=== PATIENT | female | born 1930 | race Caucasian/White ===

== ENCOUNTER 2018-09-03 22:12 | Inpatient (IN) | payer MEDICARE, OTHER ==
[2018-09-03 22:57] LABS: ADD MAN DIFF? NO
[2018-09-03 23:00] LABS: BASOPHILS % 0.4 % (0.0-2.0); EOSINOPHILS # 0.1 10^3/ul (0.0-0.5); EOSINOPHILS % 0.6 % (0.0-7.0); HEMATOCRIT 28.9 % (37.0-47.0); HEMOGLOBIN 9.4 g/dl (12.0-16.0); LYMPHOCYTES # 1.2 10^3/ul (0.8-2.9); LYMPHOCYTES % 12.3 % (15.0-51.0); MEAN CORPUSCULAR HEMOGLOBIN 28.3 pg (29.0-33.0); MEAN CORPUSCULAR HGB CONC 32.5 g/dl (32.0-37.0); MEAN PLATELET VOLUME 10.4 fl (7.4-10.4); MONOCYTE # 0.7 10^3/ul (0.3-0.9); MONOCYTES % 7.7 % (0.0-11.0); NEUTROPHIL # 7.4 10^3/ul (1.6-7.5); NEUTROPHILS % 78.5 % (39.0-77.0); PLATELET COUNT 244 10^3/UL (140-415); RED BLOOD COUNT 3.32 10^6/ul (4.20-5.40); RED CELL DISTRIBUTION WIDTH 14.7 % (11.5-14.5)
[2018-09-03 23:00] LABS: WHITE BLOOD COUNT 9.4 10^3/ul (4.8-10.8)
[2018-09-03 23:18] LABS: ALANINE AMINOTRANSFERASE 16 IU/L (13-69); ALBUMIN 3.6 g/dl (3.3-4.9); ALBUMIN/GLOBULIN RATIO 1.09; ALKALINE PHOSPHATASE 90 IU/L (42-121); ANION GAP 8 (5-13); ASPARTATE AMINO TRANSFERASE 33 IU/L (15-46); BILIRUBIN,INDIRECT 0.2 mg/dl (0-1.1); BILIRUBIN,TOTAL 0.2 mg/dl (0.2-1.3); BLOOD UREA NITROGEN 40 mg/dl (7-20); CARBON DIOXIDE 27 mmol/L (21-31); CHLORIDE 104 mmol/L (97-110); GLUCOSE 181 mg/dl (70-220); POTASSIUM 4.2 mmol/L (3.5-5.1); SODIUM 139 mmol/L (135-144); TOTAL PROTEIN 6.9 g/dl (6.1-8.1)
[2018-09-03 23:20] LABS: INR 2.03; PT RATIO 1.8
[2018-09-03 23:21] LABS: PARTIAL THROMBOPLASTIN TIME 31.2 Sec (23.0-35.0)
[2018-09-03 23:29] LABS: TROPONIN-I 0.019 ng/ml (0.000-0.120)
[2018-09-03 23:47] LABS: LACTIC ACID 1.9 mmol/L (0.5-2.0)
[2018-09-04 00:52] LABS: ADD UMIC YES; UR ASCORBIC ACID NEGATIVE (NEGATIVE); UR BACTERIA MANY /HPF (NONE SEEN); UR BILIRUBIN (Dip) NEGATIVE (NEGATIVE); UR BLOOD (Dip) 1+ mg/dL (NEGATIVE); UR CLARITY SLIGHTLY CLOUDY (CLEAR); UR COLOR YELLOW (YELLOW); UR GLUCOSE (Dip) NEGATIVE (NEGATIVE); UR KETONES (Dip) NEGATIVE (NEGATIVE); UR LEUKOCYTE ESTERASE (Dip) TRACE Leu/ul (NEGATIVE); UR MUCUS FEW /HPF (NONE SEEN); UR NITRITE (Dip) NEGATIVE (NEGATIVE); UR RBC 2 /HPF (0-5); UR SPECIFIC GRAVITY (Dip) 1.023 (1.003-1.030); UR SQUAMOUS EPITHELIAL CELL FEW /HPF (FEW); UR TOTAL PROTEIN (Dip) 2+ mg/dl (NEGATIVE); UR UROBILINOGEN (Dip) 2+ mg/dL (NEGATIVE); UR WBC 31 /HPF (0-5)
[2018-09-04] MEDS: CEFTRIAXONE 1 GM/50 ML (PMX) 50 ML IVPB (03:01)
[2018-09-04 03:42] LABS: LACTIC ACID 1.8 mmol/L (0.5-2.0)
[2018-09-04] MEDS ORDERED: ONDANSETRON 4 MG INJ IV (06:00)
[2018-09-04 06:28] LABS: ADD MAN DIFF? NO
[2018-09-04 06:31] LABS: BASOPHILS % 0.4 % (0.0-2.0); EOSINOPHILS % 0.1 % (0.0-7.0); HEMATOCRIT 25.8 % (37.0-47.0); HEMOGLOBIN 8.5 g/dl (12.0-16.0); LYMPHOCYTES # 0.9 10^3/ul (0.8-2.9); LYMPHOCYTES % 11.5 % (15.0-51.0); MEAN CORPUSCULAR HGB CONC 32.9 g/dl (32.0-37.0); MEAN CORPUSCULAR VOLUME 84.9 fl (82.0-101.0); MEAN PLATELET VOLUME 10.7 fl (7.4-10.4); MONOCYTE # 0.6 10^3/ul (0.3-0.9); MONOCYTES % 7.7 % (0.0-11.0); NEUTROPHIL # 6.4 10^3/ul (1.6-7.5); NEUTROPHILS % 79.8 % (39.0-77.0); PLATELET COUNT 243 10^3/UL (140-415); RED BLOOD COUNT 3.04 10^6/ul (4.20-5.40); RED CELL DISTRIBUTION WIDTH 14.2 % (11.5-14.5)
[2018-09-04 07:11] LABS: ANION GAP 7 (5-13); BLOOD UREA NITROGEN 42 mg/dl (7-20); CALCIUM 9.3 mg/dl (8.4-10.2); CARBON DIOXIDE 27 mmol/L (21-31); CHLORIDE 106 mmol/L (97-110); GLUCOSE 113 mg/dl (70-220); POTASSIUM 4.8 mmol/L (3.5-5.1); SODIUM 140 mmol/L (135-144)
[2018-09-04] MEDS: morphine 2 MG INJ IV ×2 (09:19→20:50)
[2018-09-04] MEDS: ATORVASTATIN 10 MG TAB PO (20:44)
[2018-09-04] MEDS ORDERED: NON-FORMULARY/PATIENT OWN MED (Simvastatin* (Zocor*) 20 MG) PO (21:00)
[2018-09-05] MEDS: CEFTRIAXONE 1 GM/50 ML (PMX) 50 ML IVPB (05:31)
[2018-09-05] MEDS: morphine LIQ (10 MG/5 ML) CUP PO ×2 (05:35→12:20)
[2018-09-05 06:21] LABS: ADD MAN DIFF? NO
[2018-09-05 06:25] LABS: WHITE BLOOD COUNT 7.8 10^3/ul (4.8-10.8)
[2018-09-05 06:25] LABS: BASOPHILS % 0.4 % (0.0-2.0); EOSINOPHILS # 0.2 10^3/ul (0.0-0.5); EOSINOPHILS % 2.2 % (0.0-7.0); HEMOGLOBIN 7.7 g/dl (12.0-16.0); LYMPHOCYTES # 1.4 10^3/ul (0.8-2.9); LYMPHOCYTES % 17.7 % (15.0-51.0); MEAN CORPUSCULAR HEMOGLOBIN 28.1 pg (29.0-33.0); MEAN CORPUSCULAR HGB CONC 33.5 g/dl (32.0-37.0); MEAN CORPUSCULAR VOLUME 83.9 fl (82.0-101.0); MEAN PLATELET VOLUME 10.6 fl (7.4-10.4); MONOCYTE # 0.8 10^3/ul (0.3-0.9); MONOCYTES % 10.8 % (0.0-11.0); NEUTROPHIL # 5.3 10^3/ul (1.6-7.5); NEUTROPHILS % 68.5 % (39.0-77.0); PLATELET COUNT 215 10^3/UL (140-415); RED BLOOD COUNT 2.74 10^6/ul (4.20-5.40); RED CELL DISTRIBUTION WIDTH 14.2 % (11.5-14.5)
[2018-09-05 07:19] LABS: ANION GAP 14 (5-13); BLOOD UREA NITROGEN 42 mg/dl (7-20); CALCIUM 8.7 mg/dl (8.4-10.2); CARBON DIOXIDE 23 mmol/L (21-31); CHLORIDE 101 mmol/L (97-110); CREATININE 1.53 mg/dl (0.44-1.00); GLUCOSE 103 mg/dl (70-220); POTASSIUM 4.5 mmol/L (3.5-5.1); SODIUM 138 mmol/L (135-144)
[2018-09-05] MEDS: FOLIC ACID 1 MG TAB PO (09:00)
[2018-09-05] MEDS: FUROSEMIDE 20 MG TAB PO (09:00)
[2018-09-05] MEDS: ALLOPURINOL 300 MG TAB PO (09:00)
[2018-09-05] MEDS ORDERED: POTASSIUM CHLORIDE (SR) 10 MEQ TAB PO (09:00)
[2018-09-05] MEDS: METOPROLOL (XL) 25 MG TAB PO (09:01)
[2018-09-05] MEDS: WARFARIN 1 MG TAB PO (17:02)
[2018-09-05 18:58] LABS: CREATINE KINASE 169 IU/L (23-200)
[2018-09-05 19:12] LABS: CK INDEX 1.1; TROPONIN-I 0.056 ng/ml (0.000-0.120)
[2018-09-05] MEDS: ATORVASTATIN 10 MG TAB PO (21:29)
[2018-09-06 01:13] LABS: CREATINE KINASE 132 IU/L (23-200)
[2018-09-06 01:26] LABS: CK INDEX 0.9; TROPONIN-I 0.061 ng/ml (0.000-0.120)
[2018-09-06] MEDS: CEFTRIAXONE 1 GM/50 ML (PMX) 50 ML IVPB (05:42)
[2018-09-06] MEDS: morphine LIQ (10 MG/5 ML) CUP PO ×2 (05:45→09:44)
[2018-09-06 06:13] LABS: ADD MAN DIFF? NO
[2018-09-06 06:28] LABS: BASOPHILS % 0.4 % (0.0-2.0); EOSINOPHILS # 0.2 10^3/ul (0.0-0.5); EOSINOPHILS % 1.8 % (0.0-7.0); HEMATOCRIT 22.6 % (37.0-47.0); HEMOGLOBIN 7.8 g/dl (12.0-16.0); LYMPHOCYTES # 1.6 10^3/ul (0.8-2.9); LYMPHOCYTES % 16.7 % (15.0-51.0); MEAN CORPUSCULAR HEMOGLOBIN 29.2 pg (29.0-33.0); MEAN CORPUSCULAR HGB CONC 34.5 g/dl (32.0-37.0); MEAN CORPUSCULAR VOLUME 84.6 fl (82.0-101.0); MEAN PLATELET VOLUME 10.9 fl (7.4-10.4); MONOCYTE # 1.1 10^3/ul (0.3-0.9); MONOCYTES % 11.5 % (0.0-11.0); NEUTROPHIL # 6.7 10^3/ul (1.6-7.5); PLATELET COUNT 240 10^3/UL (140-415); RED BLOOD COUNT 2.67 10^6/ul (4.20-5.40); RED CELL DISTRIBUTION WIDTH 14.3 % (11.5-14.5)
[2018-09-06 06:28] LABS: WHITE BLOOD COUNT 9.7 10^3/ul (4.8-10.8)
[2018-09-06 06:44] LABS: ANION GAP 9 (5-13); BLOOD UREA NITROGEN 38 mg/dl (7-20); CALCIUM 9.1 mg/dl (8.4-10.2); CARBON DIOXIDE 23 mmol/L (21-31); CHLORIDE 105 mmol/L (97-110); CREATININE 1.39 mg/dl (0.44-1.00); GLUCOSE 102 mg/dl (70-220); POTASSIUM 4.5 mmol/L (3.5-5.1); SODIUM 137 mmol/L (135-144)
[2018-09-06 06:46] LABS: CREATINE KINASE 124 IU/L (23-200)
[2018-09-06 06:49] LABS: INR 1.52; PROTIME 18.4 Sec (11.9-14.9); PT RATIO 1.4
[2018-09-06 06:54] LABS: CK INDEX 0.8; CK-MB 1.01 ng/ml (0.0-2.4)
[2018-09-06 07:13] LABS: CHOLESTEROL 113 mg/dl (100-200)
[2018-09-06 07:13] LABS: CHOL/HDL RATIO 1.8 RATIO; HDL CHOLESTEROL 60 mg/dl (33-92); LDL CHOLESTEROL,CALCULATED 41 mg/dl; TRIGLYCERIDES 62 mg/dl (0-149)
[2018-09-06] MEDS: FOLIC ACID 1 MG TAB PO (09:43)
[2018-09-06] MEDS: ALLOPURINOL 300 MG TAB PO (09:43)
[2018-09-06] MEDS: METOPROLOL (XL) 25 MG TAB PO (09:43)
[2018-09-06] MEDS: FUROSEMIDE 20 MG TAB PO (09:44)
[2018-09-06] MEDS: WARFARIN 1 MG TAB PO (18:15)
[2018-09-06] MEDS: ATORVASTATIN 10 MG TAB PO (21:29)
[2018-09-07 05:52] LABS: ADD MAN DIFF? NO
[2018-09-07] MEDS: CEFTRIAXONE 1 GM/50 ML (PMX) 50 ML IVPB (05:57)
[2018-09-07 06:00] LABS: WHITE BLOOD COUNT 9.9 10^3/ul (4.8-10.8)
[2018-09-07 06:01] LABS: BASOPHILS % 0.3 % (0.0-2.0); EOSINOPHILS # 0.1 10^3/ul (0.0-0.5); EOSINOPHILS % 0.5 % (0.0-7.0); HEMATOCRIT 21.1 % (37.0-47.0); HEMOGLOBIN 7.1 g/dl (12.0-16.0); LYMPHOCYTES # 1.3 10^3/ul (0.8-2.9); LYMPHOCYTES % 13.2 % (15.0-51.0); MEAN CORPUSCULAR HEMOGLOBIN 28.2 pg (29.0-33.0); MEAN CORPUSCULAR HGB CONC 33.6 g/dl (32.0-37.0); MEAN CORPUSCULAR VOLUME 83.7 fl (82.0-101.0); MEAN PLATELET VOLUME 10.8 fl (7.4-10.4); MONOCYTE # 1.3 10^3/ul (0.3-0.9); NEUTROPHIL # 7.2 10^3/ul (1.6-7.5); NEUTROPHILS % 72.3 % (39.0-77.0); PLATELET COUNT 223 10^3/UL (140-415); RED BLOOD COUNT 2.52 10^6/ul (4.20-5.40)
[2018-09-07 06:37] LABS: IRON 18 ug/dl (35-150)
[2018-09-07 06:46] LABS: % IRON SATURATION 7 % SAT (22-52)
[2018-09-07 06:51] LABS: TOTAL IRON BINDING CAPACITY 254 ug/dl (241-421)
[2018-09-07 07:10] LABS: THYROID STIMULATING HORMONE 0.823 MIU/L (0.465-4.680)
[2018-09-07 07:45] LABS: FOLATE > 20.0 ng/ml (2.8-20.0)
[2018-09-07] MEDS: FUROSEMIDE 20 MG TAB PO (08:32)
[2018-09-07] MEDS: FOLIC ACID 1 MG TAB PO (08:32)
[2018-09-07] MEDS: ALLOPURINOL 300 MG TAB PO (08:32)
[2018-09-07] MEDS: METOPROLOL (XL) 25 MG TAB PO (08:33)
[2018-09-07] MEDS ORDERED: BETAMET NA PHOS/AC(6 MG/ML) 5ML INJ INJ (11:45)
[2018-09-07] MEDS: ACETAMINOPHEN 500 MG TAB PO (13:37)
[2018-09-07 14:29] LABS: INR 1.44; PROTIME 17.6 Sec (11.9-14.9); PT RATIO 1.4
[2018-09-07 15:07] LABS: IMMEDIATE SPIN CROSSMATCH 1 1
[2018-09-07] MEDS: WARFARIN 1 MG TAB PO (18:55)
[2018-09-07] MEDS: ATORVASTATIN 10 MG TAB PO (20:57)
[2018-09-08] MEDS: traMADol 50 MG TAB PO (01:05)
[2018-09-08] MEDS: CEFTRIAXONE 1 GM/50 ML (PMX) 50 ML IVPB (05:52)
[2018-09-08] MEDS: FUROSEMIDE 20 MG TAB PO (05:53)
[2018-09-08 06:19] LABS: ADD MAN DIFF? NO
[2018-09-08 06:25] LABS: WHITE BLOOD COUNT 8.6 10^3/ul (4.8-10.8)
[2018-09-08 06:25] LABS: BASOPHILS % 0.2 % (0.0-2.0); EOSINOPHILS # 0.2 10^3/ul (0.0-0.5); EOSINOPHILS % 1.9 % (0.0-7.0); HEMATOCRIT 22.8 % (37.0-47.0); HEMOGLOBIN 7.7 g/dl (12.0-16.0); LYMPHOCYTES % 11.5 % (15.0-51.0); MEAN CORPUSCULAR HEMOGLOBIN 28.3 pg (29.0-33.0); MEAN CORPUSCULAR HGB CONC 33.8 g/dl (32.0-37.0); MEAN CORPUSCULAR VOLUME 83.8 fl (82.0-101.0); MONOCYTES % 11.7 % (0.0-11.0); NEUTROPHIL # 6.4 10^3/ul (1.6-7.5); NEUTROPHILS % 74.4 % (39.0-77.0); PLATELET COUNT 227 10^3/UL (140-415); RED BLOOD COUNT 2.72 10^6/ul (4.20-5.40); RED CELL DISTRIBUTION WIDTH 13.7 % (11.5-14.5)
[2018-09-08 06:48] LABS: ANION GAP 9 (5-13); BLOOD UREA NITROGEN 47 mg/dl (7-20); CALCIUM 8.5 mg/dl (8.4-10.2); CARBON DIOXIDE 24 mmol/L (21-31); CHLORIDE 99 mmol/L (97-110); CREATININE 1.69 mg/dl (0.44-1.00); GLUCOSE 98 mg/dl (70-220); POTASSIUM 4.2 mmol/L (3.5-5.1); SODIUM 132 mmol/L (135-144)
[2018-09-08] MEDS: FOLIC ACID 1 MG TAB PO (09:38)
[2018-09-08] MEDS: METOPROLOL (XL) 25 MG TAB PO (09:38)
[2018-09-08] MEDS: ALLOPURINOL 300 MG TAB PO (09:38)
[2018-09-08] MEDS: WARFARIN 1 MG TAB PO (18:23)
[2018-09-08] MEDS: ATORVASTATIN 10 MG TAB PO (20:57)
[2018-09-09] MEDS: CEFTRIAXONE 1 GM/50 ML (PMX) 50 ML IVPB (05:51)
[2018-09-09] MEDS: FUROSEMIDE 20 MG TAB PO (05:53)
[2018-09-09 06:06] LABS: INR 1.41; PROTIME 17.4 Sec (11.9-14.9); PT RATIO 1.4
[2018-09-09] MEDS: METOPROLOL (XL) 25 MG TAB PO (09:04)
[2018-09-09] MEDS: ALLOPURINOL 300 MG TAB PO (09:04)
[2018-09-09] MEDS: FOLIC ACID 1 MG TAB PO (09:04)
[2018-09-09] MEDS: SOD FERRIC GLUC COMPLX 125 MG in SOD CHLORIDE 0.9% 100 ML IVPB (12:17)
[2018-09-09] MEDS: traMADol 50 MG TAB PO (16:13)
[2018-09-09] MEDS: WARFARIN 1 MG TAB PO (16:31)
[2018-09-09] MEDS: ATORVASTATIN 10 MG TAB PO (21:03)
[2018-09-10] MEDS: FUROSEMIDE 20 MG TAB PO (05:31)
[2018-09-10] MEDS: CEFTRIAXONE 1 GM/50 ML (PMX) 50 ML IVPB (05:32)
[2018-09-10] MEDS: FOLIC ACID 1 MG TAB PO (08:41)
[2018-09-10] MEDS: METOPROLOL (XL) 25 MG TAB PO (08:42)
[2018-09-10] MEDS: ALLOPURINOL 300 MG TAB PO (08:42)
[2018-09-10] MEDS: traMADol 50 MG TAB PO ×2 (09:32→21:43)
[2018-09-10] MEDS: SOD FERRIC GLUC COMPLX 125 MG in SOD CHLORIDE 0.9% 100 ML IVPB (12:56)
[2018-09-10] MEDS ORDERED: SOD FERRIC GLUC COMPLX 125 MG in SOD CHLORIDE 0.9% 100 ML IVPB (13:00)
[2018-09-10 19:20] LABS: OCCULT BLOOD STOOL NEGATIVE (NEGATIVE)
[2018-09-10] MEDS: WARFARIN 1 MG TAB PO (19:20)
[2018-09-10] MEDS: ATORVASTATIN 10 MG TAB PO (21:42)
[2018-09-11] MEDS: CEFTRIAXONE 1 GM/50 ML (PMX) 50 ML IVPB (05:52)
[2018-09-11] MEDS: FUROSEMIDE 20 MG TAB PO (05:55)
[2018-09-11 06:06] LABS: ADD MAN DIFF? NO
[2018-09-11 06:11] LABS: ABNORMAL IP MESSAGE 1; BASOPHILS % 0.1 % (0.0-2.0); HEMATOCRIT 25.2 % (37.0-47.0); HEMOGLOBIN 8.4 g/dl (12.0-16.0); LYMPHOCYTES # 0.4 10^3/ul (0.8-2.9); LYMPHOCYTES % 3.8 % (15.0-51.0); MEAN CORPUSCULAR HEMOGLOBIN 27.9 pg (29.0-33.0); MEAN CORPUSCULAR HGB CONC 33.3 g/dl (32.0-37.0); MEAN CORPUSCULAR VOLUME 83.7 fl (82.0-101.0); MEAN PLATELET VOLUME 10.2 fl (7.4-10.4); MONOCYTE # 0.6 10^3/ul (0.3-0.9); MONOCYTES % 4.8 % (0.0-11.0); NEUTROPHIL # 10.4 10^3/ul (1.6-7.5); NEUTROPHILS % 90.4 % (39.0-77.0); NUCLEATED RED BLOOD CELLS% 0.3 /100WBC (0.0-0.0); PLATELET COUNT 372 10^3/UL (140-415); RED BLOOD COUNT 3.01 10^6/ul (4.20-5.40); RED CELL DISTRIBUTION WIDTH 13.9 % (11.5-14.5)
[2018-09-11 06:11] LABS: WHITE BLOOD COUNT 11.5 10^3/ul (4.8-10.8)
[2018-09-11 06:27] LABS: POSITIVE DIFF @See below
[2018-09-11 06:44] LABS: ANION GAP 7 (5-13); BLOOD UREA NITROGEN 49 mg/dl (7-20); CALCIUM 8.9 mg/dl (8.4-10.2); CARBON DIOXIDE 26 mmol/L (21-31); CHLORIDE 101 mmol/L (97-110); CREATININE 1.21 mg/dl (0.44-1.00); GLUCOSE 126 mg/dl (70-220); POTASSIUM 5.1 mmol/L (3.5-5.1); SODIUM 134 mmol/L (135-144)
[2018-09-11 06:45] LABS: INR 1.82; PROTIME 21.2 Sec (11.9-14.9); PT RATIO 1.7
[2018-09-11 06:47] LABS: C-REACTIVE PROTEIN 6.5 mg/dl (0.0-0.9)
[2018-09-11] MEDS: BUPIVACAINE 0.5%/EPI (SDV) 30 ML INJ INJ (08:56)
[2018-09-11] MEDS: METHYLPREDNISOLONE ACET 80 MG/ML 1 ML INJ (08:57)
[2018-09-11] MEDS: METHYLPREDNISOLONE ACET 80 MG/ML 1 ML IM (08:57)
[2018-09-11 09:16] LABS: ERYTHROCYTE SEDIMENTATION RATE 75 mm/Hr (0-30)
[2018-09-11] MEDS: METOPROLOL (XL) 25 MG TAB PO (10:17)
[2018-09-11] MEDS: FOLIC ACID 1 MG TAB PO (10:17)
[2018-09-11] MEDS: ALLOPURINOL 300 MG TAB PO (10:17)
[2018-09-11] MEDS: SOD FERRIC GLUC COMPLX 125 MG in SOD CHLORIDE 0.9% 100 ML IVPB (13:43)
[2018-09-11] MEDS: ATORVASTATIN 10 MG TAB PO (20:23)
[2018-09-11] MEDS: traMADol 50 MG TAB PO (23:54)
[2018-09-12] MEDS: CEFTRIAXONE 1 GM/50 ML (PMX) 50 ML IVPB (05:42)
[2018-09-12] MEDS: FUROSEMIDE 20 MG TAB PO (05:46)
[2018-09-12 05:59] LABS: ADD MAN DIFF? NO
[2018-09-12 06:16] LABS: BASOPHILS % 0.1 % (0.0-2.0); EOSINOPHILS % 0.1 % (0.0-7.0); HEMATOCRIT 28.9 % (37.0-47.0); HEMOGLOBIN 9.6 g/dl (12.0-16.0); LYMPHOCYTES # 0.7 10^3/ul (0.8-2.9); LYMPHOCYTES % 6.6 % (15.0-51.0); MEAN CORPUSCULAR HGB CONC 33.2 g/dl (32.0-37.0); MEAN CORPUSCULAR VOLUME 84.3 fl (82.0-101.0); MEAN PLATELET VOLUME 10.2 fl (7.4-10.4); MONOCYTE # 0.8 10^3/ul (0.3-0.9); MONOCYTES % 7.6 % (0.0-11.0); NEUTROPHIL # 8.4 10^3/ul (1.6-7.5); NEUTROPHILS % 84.5 % (39.0-77.0); NUCLEATED RED BLOOD CELLS% 0.4 /100WBC (0.0-0.0); PLATELET COUNT 442 10^3/UL (140-415); RED BLOOD COUNT 3.43 10^6/ul (4.20-5.40); RED CELL DISTRIBUTION WIDTH 14.4 % (11.5-14.5)
[2018-09-12 06:34] LABS: ANION GAP 7 (5-13); BLOOD UREA NITROGEN 49 mg/dl (7-20); CALCIUM 8.9 mg/dl (8.4-10.2); CARBON DIOXIDE 27 mmol/L (21-31); CHLORIDE 101 mmol/L (97-110); CREATININE 1.24 mg/dl (0.44-1.00); GLUCOSE 114 mg/dl (70-220); POTASSIUM 5.2 mmol/L (3.5-5.1); SODIUM 135 mmol/L (135-144)
[2018-09-12] MEDS: FOLIC ACID 1 MG TAB PO (08:43)
[2018-09-12] MEDS: ALLOPURINOL 300 MG TAB PO (08:44)
[2018-09-12] MEDS: METOPROLOL (XL) 25 MG TAB PO (08:44)
[2018-09-12] MEDS: SOD FERRIC GLUC COMPLX 125 MG in SOD CHLORIDE 0.9% 100 ML IVPB (12:13)
[2018-09-12] MEDS: CYANOCOBALAMIN 1000 MCG INJ IM (17:02)
[2018-09-12 20:17] LABS: ERYTHROPOIETIN 10.6 mIU/mL (2.6-18.5)
[2018-09-12] MEDS: ATORVASTATIN 10 MG TAB PO (20:44)
[2018-09-13] MEDS: traMADol 50 MG TAB PO ×2 (01:59→08:53)
[2018-09-13 05:39] LABS: ADD MAN DIFF? NO
[2018-09-13 05:46] LABS: WHITE BLOOD COUNT 9.7 10^3/ul (4.8-10.8)
[2018-09-13 05:46] LABS: BASOPHILS % 0.1 % (0.0-2.0); EOSINOPHILS # 0.1 10^3/ul (0.0-0.5); EOSINOPHILS % 1.1 % (0.0-7.0); HEMATOCRIT 29.7 % (37.0-47.0); HEMOGLOBIN 9.9 g/dl (12.0-16.0); LYMPHOCYTES # 0.9 10^3/ul (0.8-2.9); LYMPHOCYTES % 9.6 % (15.0-51.0); MEAN CORPUSCULAR HEMOGLOBIN 28.4 pg (29.0-33.0); MEAN CORPUSCULAR HGB CONC 33.3 g/dl (32.0-37.0); MEAN CORPUSCULAR VOLUME 85.1 fl (82.0-101.0); MONOCYTE # 0.8 10^3/ul (0.3-0.9); MONOCYTES % 7.8 % (0.0-11.0); NEUTROPHIL # 7.7 10^3/ul (1.6-7.5); NEUTROPHILS % 79.6 % (39.0-77.0); NUCLEATED RED BLOOD CELLS% 0.2 /100WBC (0.0-0.0); PLATELET COUNT 460 10^3/UL (140-415); RED BLOOD COUNT 3.49 10^6/ul (4.20-5.40); RED CELL DISTRIBUTION WIDTH 14.3 % (11.5-14.5)
[2018-09-13] MEDS: FUROSEMIDE 20 MG TAB PO (05:56)
[2018-09-13 06:21] LABS: ANION GAP 9 (5-13); BLOOD UREA NITROGEN 43 mg/dl (7-20); CARBON DIOXIDE 28 mmol/L (21-31); CHLORIDE 99 mmol/L (97-110); CREATININE 1.13 mg/dl (0.44-1.00); GLUCOSE 98 mg/dl (70-220); SODIUM 136 mmol/L (135-144)
[2018-09-13] MEDS: FOLIC ACID 1 MG TAB PO (08:52)
[2018-09-13] MEDS: ALLOPURINOL 300 MG TAB PO (08:52)
[2018-09-13] MEDS: METOPROLOL (XL) 25 MG TAB PO (08:53)
[2018-09-13] MEDS: SOD FERRIC GLUC COMPLX 125 MG in SOD CHLORIDE 0.9% 100 ML IVPB (12:40)
[2018-09-13] MEDS: EPOETIN 10000 UNITS/ML VIAL (ONCOLOGY) SC (18:06)
[2018-09-13] MEDS: ATORVASTATIN 10 MG TAB PO (21:05)
[2018-09-14] MEDS: FUROSEMIDE 20 MG TAB PO (06:16)
[2018-09-14] MEDS: ALLOPURINOL 300 MG TAB PO (08:55)
[2018-09-14] MEDS: METOPROLOL (XL) 25 MG TAB PO (08:55)
[2018-09-14] MEDS: FOLIC ACID 1 MG TAB PO (08:55)
[2018-09-14] MEDS: ATORVASTATIN 10 MG TAB PO (20:54)
[2018-09-15] MEDS: FUROSEMIDE 20 MG TAB PO (06:00)
[2018-09-15] MEDS: FOLIC ACID 1 MG TAB PO (08:22)
[2018-09-15] MEDS: METOPROLOL (XL) 25 MG TAB PO (08:22)
[2018-09-15] MEDS: ALLOPURINOL 300 MG TAB PO (08:22)
[2018-09-15] MEDS: ATORVASTATIN 10 MG TAB PO (20:40)
[2018-09-16] MEDS: FUROSEMIDE 20 MG TAB PO (06:09)
[2018-09-16] MEDS: ALLOPURINOL 300 MG TAB PO (08:23)
[2018-09-16] MEDS: FOLIC ACID 1 MG TAB PO (08:23)
[2018-09-16] MEDS: METOPROLOL (XL) 25 MG TAB PO (08:24)
[2018-09-16 09:49] LABS: ADD UMIC YES; UR ASCORBIC ACID NEGATIVE (NEGATIVE); UR BACTERIA FEW /HPF (NONE SEEN); UR BILIRUBIN (Dip) NEGATIVE (NEGATIVE); UR BLOOD (Dip) NEGATIVE (NEGATIVE); UR CLARITY CLEAR (CLEAR); UR COLOR YELLOW (YELLOW); UR GLUCOSE (Dip) NEGATIVE (NEGATIVE); UR KETONES (Dip) NEGATIVE (NEGATIVE); UR LEUKOCYTE ESTERASE (Dip) TRACE Leu/ul (NEGATIVE); UR NITRITE (Dip) NEGATIVE (NEGATIVE); UR RBC 1 /HPF (0-5); UR SQUAMOUS EPITHELIAL CELL FEW /HPF (FEW); UR TOTAL PROTEIN (Dip) NEGATIVE (NEGATIVE); UR UROBILINOGEN (Dip) NEGATIVE (NEGATIVE); UR WBC 2 /HPF (0-5)
[2018-09-16] MEDS: ATORVASTATIN 10 MG TAB PO (21:03)
[2018-09-17 05:56] LABS: ADD MAN DIFF? NO
[2018-09-17] MEDS: FUROSEMIDE 20 MG TAB PO (06:01)
[2018-09-17 06:02] LABS: BASOPHILS % 0.2 % (0.0-2.0); EOSINOPHILS # 0.2 10^3/ul (0.0-0.5); EOSINOPHILS % 1.6 % (0.0-7.0); HEMATOCRIT 31.7 % (37.0-47.0); HEMOGLOBIN 10.6 g/dl (12.0-16.0); LYMPHOCYTES # 1.7 10^3/ul (0.8-2.9); LYMPHOCYTES % 13.9 % (15.0-51.0); MEAN CORPUSCULAR HEMOGLOBIN 28.7 pg (29.0-33.0); MEAN CORPUSCULAR HGB CONC 33.4 g/dl (32.0-37.0); MEAN CORPUSCULAR VOLUME 85.9 fl (82.0-101.0); MONOCYTE # 0.8 10^3/ul (0.3-0.9); MONOCYTES % 6.3 % (0.0-11.0); NEUTROPHIL # 8.9 10^3/ul (1.6-7.5); NEUTROPHILS % 73.9 % (39.0-77.0); NUCLEATED RED BLOOD CELLS% 0.3 /100WBC (0.0-0.0); PLATELET COUNT 439 10^3/UL (140-415); RED BLOOD COUNT 3.69 10^6/ul (4.20-5.40); RED CELL DISTRIBUTION WIDTH 15.2 % (11.5-14.5)
[2018-09-17 06:02] LABS: WHITE BLOOD COUNT 12.1 10^3/ul (4.8-10.8)
[2018-09-17 06:35] LABS: ANION GAP 8 (5-13); BLOOD UREA NITROGEN 38 mg/dl (7-20); CALCIUM 8.9 mg/dl (8.4-10.2); CARBON DIOXIDE 27 mmol/L (21-31); CHLORIDE 101 mmol/L (97-110); CREATININE 1.15 mg/dl (0.44-1.00); GLUCOSE 90 mg/dl (70-220); POTASSIUM 4.5 mmol/L (3.5-5.1); SODIUM 136 mmol/L (135-144)
[2018-09-17] MEDS: FOLIC ACID 1 MG TAB PO (08:49)
[2018-09-17] MEDS: FERROUS SULFATE (EC) 325 MG TAB PO (08:49)
[2018-09-17] MEDS: ALLOPURINOL 300 MG TAB PO (08:49)
[2018-09-17] MEDS: METOPROLOL (XL) 25 MG TAB PO (08:50)
[2018-09-17] MEDS: FAMOTIDINE 20 MG TAB PO (08:50)
[2018-09-17 13:53] LABS: PROTIME 14.3 Sec (11.9-14.9); PT RATIO 1.1
== END 2018-09-17 18:52 | DRG 690 ==
LOC: E/R 22:12 → PP2 09-04 03:27
PROC: 30233N1 Transfusion of Nonautologous Red Blood Cells into Peripheral Vein, Percutaneous Approach (ICD-10-PCS; principal; 2018-09-07)
PROC: 3E0U33Z Introduction of Anti-inflammatory into Joints, Percutaneous Approach (ICD-10-PCS; 2018-09-08)
PROC: 3E0U3BZ Introduction of Anesthetic Agent into Joints, Percutaneous Approach (ICD-10-PCS; 2018-09-08)
DX: N39.0 Urinary tract infection, site not specified (principal); N17.9 Acute kidney failure, unspecified; D68.59 Other primary thrombophilia; I42.9 Cardiomyopathy, unspecified; I13.0 Hypertensive heart and chronic kidney disease with heart failure and stage 1 through stage 4 chronic kidney disease, or unspecified chronic kidney disease; Z95.0 Presence of cardiac pacemaker; W19.XXXA Unspecified fall, initial encounter; E78.5 Hyperlipidemia, unspecified; M10.9 Gout, unspecified; D63.1 Anemia in chronic kidney disease; M75.101 Unspecified rotator cuff tear or rupture of right shoulder, not specified as traumatic; M19.011 Primary osteoarthritis, right shoulder; M16.11 Unilateral primary osteoarthritis, right hip; Z96.641 Presence of right artificial hip joint; M17.0 Bilateral primary osteoarthritis of knee; B96.20 Unspecified Escherichia coli [E. coli] as the cause of diseases classified elsewhere; Z85.3 Personal history of malignant neoplasm of breast; Z79.01 Long term (current) use of anticoagulants; S30.0XXA Contusion of lower back and pelvis, initial encounter; I72.3 Aneurysm of iliac artery; N18.9 Chronic kidney disease, unspecified; I50.9 Heart failure, unspecified
CPT/HCPCS: 36415; 36430; 70450; 71045; 73030-RT; 73500; 73510; 73560; 74176; 80048; 80053; 80061; 81001; 82270; 82550; 82553; 82607; 82668; 82728; 82746; 83540; 83605; 84443; 84484; 85025; 85610; 85651; 85730; 86140; 86850; 86900; 86901; 86920; 87040; 87045; 87086; 93005; 93306; 96374; 97110; 97116; 97162; 97530; 99285-25; G0378; J0885